=== PATIENT | male | born 1990 | race American Indian/Alaskan Native ===

== ENCOUNTER 2018-10-20 20:48 | Emergency (ER) | payer SELFPAY ==
[2018-10-20 21:04] VITALS: BP 143/102
[2018-10-20] MEDS ORDERED: ULTRAM PO ONE (22:14)
[2018-10-20] MEDS ORDERED: TRIMOX PO ONE (22:14)
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
== END 2018-10-20 22:40 | disposition home or self-care (01) ==
LOC: ED 20:48
DX: K02.9 Dental caries, unspecified (principal); F17.200 Nicotine dependence, unspecified, uncomplicated
CPT/HCPCS: 99282

== ENCOUNTER 2022-04-15 10:08 | Emergency (ER) | payer OTHER ==
[2022-04-15 10:33] VITALS: BP 132/82
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
== END 2022-04-15 10:41 | disposition home or self-care (01) ==
LOC: ED 10:08
DX: K02.9 Dental caries, unspecified (principal); F17.200 Nicotine dependence, unspecified, uncomplicated; F12.90 Cannabis use, unspecified, uncomplicated
CPT/HCPCS: 99282